=== PATIENT | male | born 1975 | race Asian ===

== ENCOUNTER 2016-08-21 19:23 | Emergency (ER) | payer OTHER ==
[2016-08-21 20:49] VITALS: BP 142/87
== END 2016-08-21 20:39 | disposition home or self-care (01) ==
LOC: ED 19:23
DX: G51.0 Bell's palsy (principal)

== ENCOUNTER 2016-12-30 18:31 | Emergency (ER) | payer OTHER ==
[~2016-12-30] VITALS: Ht 180.3 cm; Wt 76.2 kg
[2016-12-30 21:08] VITALS: BP 135/92
== END 2016-12-30 21:08 | disposition home or self-care (01) ==
LOC: ED 18:31
DX: S16.1XXA Strain of muscle, fascia and tendon at neck level, initial encounter (principal); Z88.6 Allergy status to analgesic agent; V89.2XXA Person injured in unspecified motor-vehicle accident, traffic, initial encounter; Y93.89 Activity, other specified; Y92.89 Other specified places as the place of occurrence of the external cause; Y99.8 Other external cause status